=== PATIENT | female | born 1980 | race Caucasian/White ===

== ENCOUNTER 2020-05-30 12:55 | Emergency (ER) | payer MEDICAID ==
--- NOTE | 2020-05-30 13:44 | EDM.PDOC ---
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 P atient dates that she believes she is she had positive practice at home is not sure how far along she is. Patient's been 11 times in the past has had 7 for by vaginal delivery 3 by . Patient has any abdominal pain cramping or seeing any clots or tissue in the spotting today. Patient is now follow-up with TRANSITION MANAGER yet for this . 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 Musculoskeletal History: Reports: None Neurological History: Reports: None Psychiatric History: Reports: None Endocrine/Metabolic History: Reports: None Hematologic History: Reports: None Immunologic History: Reports: None Oncologic (Cancer) History: Reports: None Dermatologic History: Reports: None - Past Surgical History GI Surgical History: Reports: Cholecystectomy Social & Family History - Family History Family Medical History: No Pertinent Family History - Caffeine Use Caffeine Use: Reports: Coffee, Energy Drinks, Soda - Recreational Drug Use Recreational Drug Use: No ED ROS GENERAL - Review of Systems Review Of Systems: See Below Constitutional: Reports: No Symptoms HEENT: Reports: No Symptoms Respiratory: Reports: No Symptoms Cardiovascular: Reports: No Symptoms Endocrine: Reports: No Symptoms GI/Abdominal: Reports: No Symptoms : Reports: Other (vaginal spotting) Musculoskeletal: Reports: No Symptoms Skin: Reports: No Symptoms Neurological: Reports: No Symptoms Psychiatric: Reports: No Symptoms Hematologic/Lymphatic: Reports: No Symptoms Immunologic: Reports: No Symptoms ED EXAM - Physical Exam Exam: See Below Exam Limited By: No Limitations General Appearance: Alert, WD/WN Respiratory/Chest: No Respiratory Distress, Lungs Clear, Normal Breath Sounds Cardiovascular: Normal Peripheral Pulses, Regular Rate, Rhythm, No Edema GI/Abdominal Exam: Normal Bowel Sounds, Soft, Non-Tender (Female) Exam: Normal Bimanual Exam, Normal External Exam, Normal Speculum Exam. No: Adnexal Mass (L), Adnexal Mass (R), Cervical Dilatation, Cervix Motion Tenderness Neurological: Alert, Oriented Course - Vital Signs Last Recorded V/S: Last Vital Signs Temp 97 F 05/30/20 13:21 Pulse 80 05/30/20 16:00 Resp 16 05/30/20 16:00 BP 121/81 05/30/20 16:00 Pulse Ox 98 05/30/20 16:00 - Orders/Labs/Meds Orders: Active Orders 24 hr Category Date Time Status CULTURE URINE [RM] Stat Lab 05/30/20 15:25 Received Labs: Laboratory Tests 05/30/20 05/30/20 05/30/20 Range/Units 13:59 13:59 14:05 WBC 9.01 (4.0-11.0) K/uL RBC 4.64 (4.30-5.90) M/uL Hgb 13.6 (12.0-16.0) g/dL Hct 40.7 (36.0-46.0) % MCV 87.7 (80.0-98.0) fL MCH 29.3 (27.0-32.0) pg MCHC 33.4 (31.0-37.0) g/dL RDW Std Deviation 43.2 (28.0-62.0) fl RDW Coeff of Panda 13 (11.0-15.0) % Plt Count 299 (150-400) K/uL MPV 9.80 (7.40-12.00) fL Neut % (Auto) 65.9 (48.0-80.0) % Lymph % (Auto) 25.0 (16.0-40.0) % Laurens % (Auto) 5.8 (0.0-15.0) % Eos % (Auto) 3.0 (0.0-7.0) % Baso % (Auto) 0.3 (0.0-1.5) % Neut # (Auto) 5.9 H (1.4-5.7) K/uL Lymph # (Auto) 2.3 (0.6-2.4) K/uL Laurens # (Auto) 0.5 (0.0-0.8) K/uL Eos # (Auto) 0.3 (0.0-0.7) K/uL Baso # (Auto) 0.0 (0.0-0.1) K/uL Nucleated RBC % 0.0 /100WBC Nucleated RBCs # 0 K/uL Sodium 139 (136-145) mmol/L Potassium 3.7 (3.5-5.1) mmol/L Chloride 104 (98-107) mmol/L Carbon Dioxide 27.3 (21.0-32.0) mmol/L BUN 8 (7.0-18.0) mg/dL Creatinine 0.7 (0.6-1.0) mg/dL Est Cr Clr Drug Dosing 76.74 mL/min Estimated GFR (MDRD) > 60.0 ml/min Glucose 105 (74-106) mg/dL Calcium 8.9 (8.5-10.1) mg/dL Total Bilirubin 0.3 (0.2-1.0) mg/dL AST 9 L (15-37) IU/L ALT 24 (14-63) IU/L Alkaline Phosphatase 72 (46-116) U/L Total Protein 7.5 (6.4-8.2) g/dL Albumin 3.3 L (3.4-5.0) g/dL Globulin 4.2 H (2.6-4.0) g/dL Albumin/Globulin Ratio 0.8 L (0.9-1.6) HCG, Quant 2159.0 mIU/mL Urine Color Urine Appearance Urine pH (5.0-8.0) Ur Specific Bruce (1.001-1.035) Urine Protein (NEGATIVE) mg/dL Urine Glucose (UA) (NEGATIVE) mg/dL Urine Ketones (NEGATIVE) mg/dL Urine Occult Blood (NEGATIVE) Urine Nitrite (NEGATIVE) Urine Bilirubin (NEGATIVE) Urine Urobilinogen (<2.0) EU/dL Ur Leukocyte Esterase (NEGATIVE) Urine RBC (0-2/HPF) Urine WBC (0-5/HPF) Ur Epithelial Cells (NONE-FEW) Urine Bacteria (NEGATIVE) Urine Yeast Blood Type O POSITIVE 04/11/21 Range/Units 15:25 WBC (4.0-11.0) K/uL RBC (4.30-5.90) M/uL Hgb (12.0-16.0) g/dL Hct (36.0-46.0) % MCV (80.0-98.0) fL MCH (27.0-32.0) pg MCHC (31.0-37.0) g/dL RDW Std Deviation (28.0-62.0) fl RDW Coeff of Panda (11.0-15.0) % Plt Count (150-400) K/uL MPV (7.40-12.00) fL Neut % (Auto) (48.0-80.0) % Lymph % (Auto) (16.0-40.0) % Laurens % (Auto) (0.0-15.0) % Eos % (Auto) (0.0-7.0) % Baso % (Auto) (0.0-1.5) % Neut # (Auto) (1.4-5.7) K/uL Lymph # (Auto) (0.6-2.4) K/uL Laurens # (Auto) (0.0-0.8) K/uL Eos # (Auto) (0.0-0.7) K/uL Baso # (Auto) (0.0-0.1) K/uL Nucleated RBC % /100WBC Nucleated RBCs # K/uL Sodium (136-145) mmol/L Potassium (3.5-5.1) mmol/L Chloride (98-107) mmol/L Carbon Dioxide (21.0-32.0) mmol/L BUN (7.0-18.0) mg/dL Creatinine (0.6-1.0) mg/dL Est Cr Clr Drug Dosing mL/min Estimated GFR (MDRD) ml/min Glucose (74-106) mg/dL Calcium (8.5-10.1) mg/dL Total Bilirubin (0.2-1.0) mg/dL AST (15-37) IU/L ALT (14-63) IU/L Alkaline Phosphatase (46-116) U/L Total Protein (6.4-8.2) g/dL Albumin (3.4-5.0) g/dL Globulin (2.6-4.0) g/dL Albumin/Globulin Ratio (0.9-1.6) HCG, Quant mIU/mL Urine Color YELLOW Urine Appearance CLEAR Urine pH 6.0 (5.0-8.0) Ur Specific Bruce 1.015 (1.001-1.035) Urine Protein NEGATIVE (NEGATIVE) mg/dL Urine Glucose (UA) NEGATIVE (NEGATIVE) mg/dL Urine Ketones NEGATIVE (NEGATIVE) mg/dL Urine Occult Blood LARGE H (NEGATIVE) Urine Nitrite NEGATIVE (NEGATIVE) Urine Bilirubin NEGATIVE (NEGATIVE) Urine Urobilinogen 0.2 (<2.0) EU/dL Ur Leukocyte Esterase SMALL H (NEGATIVE) Urine RBC 1-3 (0-2/HPF) Urine WBC 5-10 (0-5/HPF) Ur Epithelial Cells MANY (NONE-FEW) Urine Bacteria FEW (NEGATIVE) Urine Yeast RARE Blood Type - Re-Assessments/Exams Free Text/Narrative Re-Assessment/Exam: 05/30/20 17:09 Patient ultrasound labs reviewed. Patient on exam os is closed. Patient will be discharged follow-up with TRANSITION MANAGER as outpatient. Departure - Departure Time of Disposition: 17:10 Disposition: Home, Self-Care 01 Condition: Good Clinical Impression: Haemorrhage complicating , less than 22 weeks, antepartum - Discharge Information *PRESCRIPTION DRUG MONITORING PROGRAM REVIEWED*: Not Applicable *COPY OF PRESCRIPTION DRUG MONITORING REPORT IN PATIENT CHARLENE: Not Applicable Instructions: Vaginal Bleeding During , First Trimester, [id number] Referrals: PCP,None [Primary Care Provider] - Forms: ED Department Discharge Additional Instructions: The following information is given to patients seen in the emergency department who are being discharged to home. This information is to outline your options for follow-up care. We provide all patients seen in our emergency department with a follow-up referral. The need for follow-up, as well as the timing and circumstances, are variable depending upon the specifics of your emergency department visit. If you don't have a primary care physician on staff, we will provide you with a referral. We always advise you to contact your personal physician following an emergency department visit to inform them of the circumstance of the visit and for follow-up with them and/or the need for any referrals to a consulting specialist. The emergency department will also refer you to a specialist when appropriate. This referral assures that you have the opportunity for follow-up care with a specialist. All of these measure are taken in an effort to provide you with optimal care, which includes your follow-up. Under all circumstances we always encourage you to contact your private physician who remains a resource for coordinating your care. When calling for follow-up care, please make the office aware that this follow-up is from your recent emergency room visit. If for any reason you are refused follow-up, please contact the [facility] Emergency Department at and asked to speak to the emergency department charge nurse. Please follow up with your primary care physician. If you do not have a primary care physician, see below: [facility] [address] [place] [id number] [facility] [address] [place] [id number] We performed labs and ultrasound that shows that you have a early but we cannot confirm the correct position of the baby. This because it may be too early we recommend you follow-up to get ultrasound you see your TRANSITION MANAGER doctor. You have any increased bleeding passing tissues or clots or abdominal pain please return to ED immediately. Above we have listed to TRANSITION MANAGER clinic that you can fo llow-up with. Sepsis Event Note (ED) - Evaluation Sepsis Screening Result: No Definite Risk - Focused Exam Vital Signs: Vital Signs Temp Pulse Resp BP Pulse Ox 05/30/20 16:00 80 16 121/81 98 05/30/20 13:21 97 F 90 18 120/79 97 - My Orders Last 24 Hours: My Active Orders 05/30/20 15:25 CULTURE URINE [RM] Stat - Assessment/Plan Last 24 Hours: My Active Orders 05/30/20 15:25 CULTURE URINE [RM] Stat Plan: Patient is a 40-year-old female who is a G7P 12 presents today for vaginal bleeding believe she is currently. Will obtain a test labs and ultrasound and reassess.
[2020-05-30 15:01] LABS: BLOOD UREA NITROGEN,BUN 8 mg/dL (7.0-18.0); CARBON DIOXIDE,CO2 27.3 mmol/L (21.0-32.0); CHLORIDE,CL 104 mmol/L (98-107); GLUCOSE RANDOM 105 mg/dL (74-106); POTASSIUM,K 3.7 mmol/L (3.5-5.1); SODIUM,NA 139 mmol/L (136-145)
--- NOTE | 2020-05-30 17:03 | US ---
INDICATION: Vaginal bleeding. First trimester ultrasound. TECHNIQUE: Real-time young-scale imaging of the pelvis was performed transabdominally and endovaginally. COMPARISON: None. FINDINGS: In the central echogenic portion of the upper uterus, there is a fluid collection with a mean diameter of 7 mm which most likely represents a gestational sac. This size corresponds to an average ultrasound age 5 weeks and 3 days, compared to LMP dating of 8 weeks 2 days. There is no yolk sac and no embryo. Bilaterally, the ovaries show no abnormality. The right ovary measures 2.5 x 1.5 x 0.9 cm and the left ovary measures 2.2 x 1.6 x 1.8 cm. No adnexal mass or free pelvic fluid. IMPRESSION: There is an intrauterine fluid collection with a mean diameter of 7 mm which most likely represents a gestational sac. There is no yolk sac and no embryo. The is of uncertain viability based on this single ultrasound. Consider further evaluation with a follow-up ultrasound in 14 days or more. Dictated by Johnny Franz MD @ May 30 2020 4:56PM Signed by Dr. Johnny Franz @ May 30 2020 5:02PM
== END 2020-05-30 17:19 | disposition home or self-care (01) ==
LOC: MW.ED 12:55
DX: O20.9 Hemorrhage in early pregnancy, unspecified (principal)
CPT/HCPCS: 36415; 76813; 76816-26; 80053; 81001; 84702; 85025; 86900; 86901; 87086; 99284-25

== ENCOUNTER 2020-06-15 08:51 | Day surgery (SDC) | payer MEDICAID ==
[~2020-06-15 08:51] MED LIST: Acetaminophen 1,000 MG in Premix Bag 1 BAG IV PRN; Doxycycline 100 MG Cap PO ONE; Glycopyrrolate 0.2 MG/ML SDV ONE; Ketorolac 30 MG/ML SDV ONE; Lactated Ringers 1,000 ML IV SCH; Lidocaine 2% 5 ML SDV ONE; Midazolam 1 MG/ML 2 ML SDV ONE; Ondansetron 4 MG/2 ML SDV ONE; Propofol 200 MG/20 ML SDV ONE; fentaNYL 100 MCG/2 ML SDV IVPUSH PRN; fentaNYL 100 MCG/2 ML SDV ONE
[2020-06-15] MEDS ORDERED: Doxycycline 100 MG Cap ONE (09:17)
--- NOTE | 2020-06-15 09:22 | PCM.PREANE ---
Preanesthetic Assessment - Anesthesia/Transfusion/Family Hx Anesthesia History: Prior Anesthesia Without Reaction Family History of Anesthesia Reaction: Other (see below) Transfusion History: No Prior Transfusion(s) - Review of Systems General: No Symptoms Pulmonary: No Symptoms Cardiovascular: No Symptoms Gastrointestinal: No Symptoms Neurological: No Symptoms Other: Reports: None - Physical Assessment NPO Status Date: 06/15/20 NPO Status Time: 00:01 Height: 5 ft Weight: 194 lb ASA Class: 2 Mental Status: Alert & Oriented x3 Airway Class: Mallampati = 2 Dentition: Reports: Normal Dentition ROM/Head Extension: Full Lungs: Clear to Auscultation, Normal Respiratory Effort Cardiovascular: Regular Rate, Regular Rhythm - Lab Values: Laboratory Last Values Blood Type O POSITIVE 06/14/20 16:10 Antibody Screen NEGATIVE 06/14/20 16:10 - Allergies Allergies/Adverse Reactions: Allergies Allergy/AdvReac Type Severity Reaction Status Date / Time Yeast Allergy Stomach Verified 06/09/20 09:33 Upset - Anesthesia Plan Pre-Op Medication Ordered: None - Acknowledgements Anesthesia Type Planned: General Anesthesia Pt an Appropriate Candidate for the Planned Anesthesia: Yes Alternatives and Risks of Anesthesia Discussed w Pt/Guardian: Yes Pt/Guardian Understands and Agrees with Anesthesia Plan: Yes Additional Comments: npo after mn tob none etoh rare no cv rpoblems G12 PreAnesthesia Questionnaire HEENT History: Reports: None Cardiovascular History: Reports: None Respiratory History: Reports: None Gastrointestinal History: Reports: None Genitourinary History: Reports: None 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: , 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 Other OB/BYN History: 4 previous miscarriages, c/section x3 Musculoskeletal History: Reports: Fracture Other Musculoskeletal History: hx fx arm and finger Neurological History: Reports: None Psychiatric History: Reports: None Endocrine/Metabolic History: Reports: Obesity/BMI 30+ Hematologic History: Reports: None Immunologic History: Reports: None Oncologic (Cancer) History: Reports: None Dermatologic History: Reports: Eczema - Past Surgical History Head Surgeries/Procedures: Reports: None HEENT Surgical History: Reports: None Cardiovascular Surgical History: Reports: None Respiratory Surgical History: Reports: None GI Surgical History: Reports: Cholecystectomy Female Surgical History: Reports: Section, D&C Endocrine Surgical History: Reports: None Neurological Surgical History: Reports: None Musculoskeletal Surgical History: Reports: None Oncologic Surgical History: Reports: None Dermatological Surgical History: Reports: None - SUBSTANCE USE Tobacco Use Status *Q: Never Tobacco User - HOME MEDS Home Medications: Home Meds Pnv No.95/Ferrous Fum/Folic AC [ Caplet] 1 each PO DAILY 05/30/20 [History] - CURRENT (IN HOUSE) MEDS Current Meds: Current Medications Fentanyl (Fentanyl 100 Mcg/2 Ml Sdv) 50 mcg IVPUSH Q5M PRN PRN Reason: Pain Lactated Ringer's (Ringers, Lactated) 1,000 mls @ 125 mls/hr IV ASDIRECTED [facility] Last Admin: 06/15/20 09:17 Dose: 125 mls/hr Documented by: Acetaminophen 1,000 mg/ Premix 100 mls @ 400 mls/hr IV Q6H PRN PRN Reason: Pain Discontinued Medications Doxycycline Hyclate (Doxycycline 100 Mg Cap) 200 mg PO ONETIME ONE Stop: 06/15/20 06:20 Doxycycline Hyclate (Doxycycline 100 Mg Cap) Confirm Administered Dose 200 mg .ROUTE .STK-MED ONE Stop: 06/15/20 09:18 Fentanyl (Fentanyl 100 Mcg/2 Ml Sdv) Confirm Administered Dose 100 mcg .ROUTE .STK-MED ONE Stop: 06/15/20 07:07 Glycopyrrolate (Glycopyrrolate 0.2 Mg/Ml Sdv) Confirm Administered Dose 0.2 mg .ROUTE .STK-MED ONE Stop: 06/15/20 07:07 Ketorolac Tromethamine (Ketorolac 30 Mg/Ml Sdv) Confirm Administered Dose 30 mg .ROUTE .STK-MED ONE Stop: 06/15/20 07:07 Lidocaine (Lidocaine 2% 5 Ml Sdv) Confirm Administered Dose 5 ml .ROUTE .STK-MED ONE Stop: 06/15/20 07:07 Midazolam HCl (Midazolam 1 Mg/Ml 2 Ml Sdv) Confirm Administered Dose 2 mg .ROUTE .STK-MED ONE Stop: 06/15/20 07:07 Ondansetron HCl (Ondansetron 4 Mg/2 Ml Sdv) Confirm Administered Dose 4 mg .ROUTE .STK-MED ONE Stop: 06/15/20 07:07 Propofol (Propofol 200 Mg/20 Ml Sdv) Confirm Administered Dose 200 mg .ROUTE .STK-MED ONE Stop: 06/15/20 07:06
--- NOTE | 2020-06-15 10:12 | PCM.OPNOTE ---
- General Post-Op/Procedure Note Date of Surgery/Procedure: 06/15/20 Operative Procedure(s): Suction dilation and curettage Findings: 8 week sized anteverted uterus Pre Op Diagnosis: 9 week missed Post-Op Diagnosis: 9 week missed Anesthesia Technique: General LMA Primary Surgeon: Latha Gaston Anesthesia Provider: Aquilino Triplett Pathology: Products of conception Fluid Replacement, Intraop: 500 (crystalloid) Output, Urine Amount: 30 (straight cath prior to procedure) EBL in mLs: 50 Complications: None known Condition: Good Free Text/Narrative:: Dictation #[id number]
--- NOTE | 2020-06-15 10:29 | PCM.POSTAN ---
POST ANESTHESIA ASSESSMENT - MENTAL STATUS Mental Status: Alert (no anesthetic problems), Oriented - VITAL SIGNS Vital Signs: Last Vital Signs Temp 205.3 F H 06/15/20 09:56 Pulse 90 06/15/20 10:21 Resp 13 06/15/20 10:21 BP 101/65 06/15/20 10:21 Pulse Ox 94 L 06/15/20 10:21 - RESPIRATORY Respiratory Status: Respiratory Rate WNL, Airway Patent, O2 Saturation Stable - CARDIOVASCULAR CV Status: Pulse Rate WNL, Blood Pressure Stable - GASTROINTESTINAL GI Status: No Symptoms - POST OP HYDRATION Hydration Status: Adequate & Stable
--- NOTE | 2020-06-15 12:15 | OR ---
SURGEON: MILA GASTON MD DATE OF PROCEDURE: 06/15/2020 PREOPERATIVE DIAGNOSIS: 9-week missed . POSTOPERATIVE DIAGNOSIS: 9-week missed . PROCEDURE: Suction dilation and curettage. PRIMARY SURGEON: Mila Gaston MD, present for the entire procedure. ANESTHESIA: LMA. COMPLICATIONS: None known. ESTIMATED BLOOD LOSS: 50 mL. INTRAVENOUS FLUIDS: 500 mL of crystalloid. URINE OUTPUT: 30 mL, straight cath prior to the procedure. FINDINGS: An 8-week size anteverted uterus. PATHOLOGY: Products of conception. INDICATIONS: The patient is a 40-year-old 12, para 7-0-4-7 with last menstrual period of 04/02/2020. She presented to [facility] for followup after visiting the emergency department due to spotting during the first trimester. At the clinic appointment, lab was obtained and a decrease in her beta HCG was noted and spotting continued. Ultrasound was performed, and pole was noted. However, no cardiac activity confirming a missed at 9 weeks' gestation. At that appointment, the patient was noted to be positive for gonorrhea and treated with Rocephin. The patient was advised to await surgical intervention until at least 1 week after treatment. The patient presents to preop today with continued vaginal spotting and small clots. Denies pelvic pain. Desires to proceed with scheduled suction dilation and curettage after informed consent was obtained. PROCEDURE IN DETAIL: The patient was taken to the operating room where anesthesia was induced. She was prepped and draped in the dorsal lithotomy position. An open Graves speculum was inserted into the vagina to visualize the cervix. The bladder was drained prior to the procedure. A single-tooth tenaculum was then used to grasp the cervix at 12 o'clock, and the cervix was then serially dilated to 10 Hegar. A #9 curved suction curette was advanced to the fundus. It was then attached to suction and rotated to clear the uterus of products of conception. A sharp curettage was then performed until a gritty texture was noted. A bedside transabdominal ultrasound was then performed, and the uterus appeared to be clear of products of conception. Suction curettage was performed once more. Minimal bleeding was noted. The tenaculum was removed with good hemostasis. All instruments were then removed from the vagina. The patient tolerated the procedure well. Sponge, lap, and needle count were correct x2. The patient received 1 dose of doxycycline 200 mg prior to the procedure. The patient was taken to recovery in stable condition. JOSE SOUSA /[id number]
--- NOTE | 2020-06-15 12:26 | PCM48HPAN ---
Post Anesthesia Note - EVALUATION WITHIN 48HRS OF ANESTHETIC Vital Signs in Normal Range: Yes Patient Participated in Evaluation: Yes Respiratory Function Stable: Yes Airway Patent: Yes Cardiovascular Function Stable: Yes Hydration Status Stable: Yes Pain Control Satisfactory: Yes Nausea and Vomiting Control Satisfactory: Yes Mental Status Recovered: Yes Vital Signs: Last Vital Signs Temp 97.9 F 06/15/20 10:27 Pulse 83 06/15/20 11:02 Resp 15 06/15/20 11:02 BP 101/55 L 06/15/20 11:02 Pulse Ox 95 06/15/20 11:02
== END 2020-06-15 11:48 | disposition home or self-care (01) ==
LOC: MW.SDS 08:51
PROVIDERS: ATTEND Obstetrics & Gynecology
DX: O03.9 Complete or unspecified spontaneous abortion without complication (principal); Z91.02 Food additives allergy status; E66.9 Obesity, unspecified; Z68.37 Body mass index [BMI] 37.0-37.9, adult; Z98.890 Other specified postprocedural states
CPT/HCPCS: 36415; 59820; 86850; 86900; 86901; 88305; A9270; J1885; J2250; J2405; J2704; J3490; J7120; 01965; J3010